=== PATIENT | female | born 1945 | race African-American/Black ===

== ENCOUNTER 2017-11-28 08:05 | Day surgery (SDC) | payer MEDICARE, BC, OTHER ==
[~2017-11-28 08:05] MED LIST: KETOROLAC TROMETHAMINE 0.45% 4 DROP/0.4 ML DROPERETTE OS PRN
[2017-11-28] MEDS: CYCLOPENTOLATE 0.2%/PHENYLEPHRINE 1% OPH SOLN 2 ML OS PRN ×3 (08:55→09:14)
[2017-11-28] MEDS: BESIFLOXACIN HCL 0.6% OPH SUSP 5 ML BOTTLE OS PRN ×3 (08:55→09:54)
[2017-11-28] MEDS: TROPICAMIDE 1% OPH SOLN 3 ML OS PRN ×3 (08:55→09:14)
[2017-11-28] MEDS: TETRACAINE HCL 0.5% OPH SOLN 4 ML OS PRN ×2 (08:55→09:28)
[2017-11-28] MEDS ORDERED: LIDOCAINE 1%/PHENYLEPHRINE 1.5% 1 ML VIAL ONE (09:01)
[2017-11-28] MEDS ORDERED: EPINEPHRINE INJ/PF 1 MG/1 ML AMPULE ONE (09:01)
[2017-11-28] MEDS ORDERED: CHONDR SU A NA/HYALUR INTRAOC KIT (SURGICARE) ONE (09:01)
[2017-11-28] MEDS ORDERED: FENTANYL CITRATE INJ/PF 100 MCG/2 ML AMPUL ONE (09:27)
[2017-11-28] MEDS ORDERED: MIDAZOLAM 2 MG/2 ML INJ ONE (09:27)
[2017-11-28] MEDS ORDERED: TETRACAINE HCL 0.5% OPH SOLN 4 ML OP ONE (09:45)
[2017-11-28] MEDS ORDERED: LIDOCAINE 1%/PHENYLEPHRINE 1.5% 1 ML VIAL IO ONE (09:45)
--- NOTE | 2017-11-28 16:11 | [facility] DISCHARGE SUMMARY E ---
[facility] Discharge Summary NAME: LI BRIDGES AGE: 71Y ADMITTED: 11/28/2017 DISCHARGED: 11/28/2017 FINAL DIAGNOSIS: Cataract, left eye. HISTORY OF PRESENT ILLNESS: This is a 71-year-old female who underwent cataract extraction of the left eye. She underwent surgery because she was having increased difficulty driving at night, secondary to headlights. DISCHARGE INSTRUCTIONS: She should be on a regular diet. No bending at her waist, no heavy lifting. She should use Besivance, Ilevro and Durezol at 3:00 p.m. and 8:00 p.m. Sleep with a rigid shield. I will see her for a 1-day postoperative tomorrow. DICTATING PHYSICIAN: SAURAV BRYAN M.D. [id number] PHY#: [id number] ID: [id number] JOB#: [id number] ACCT: [id number] cc:SAURAV BRYAN M.D. >
--- NOTE | 2017-11-28 16:11 | [facility] OPERATIVE REPORT E ---
[facility] Operative Report NAME: LI BRIDGES AGE: 71Y DATE OF SURGERY: 11/28/2017 ROOM: PREOPERATIVE DIAGNOSIS: CATARACT, LEFT EYE. POSTOPERATIVE DIAGNOSIS: CATARACT, LEFT EYE. OPERATION: Cataract extraction with insertion of an IOL of the left eye. SURGEON: SAURAV BRYAN M.D. ANESTHESIA: Topical. PROCEDURE: After obtaining appropriate consent, the patient's left eye was prepped and draped in sterile fashion as well as the surgeon in a sterile manner and cataract surgery was started. First a paracentesis blade was used to make a side-port incision. Viscoelastic was used to inflate the anterior chamber. Next a 2.4 mm incision was made with a 2.4 mm blade, clear corneal temporally. A continuous capsulorrhexis was made using a cystotome and Utrata forceps. Following this hydrodissection was carried out to make the lens fully loose and mobile and it was rotated 90 degrees. Following this, a ctfdlf-xdq-cjsbysl technique was used to phacoemulsify the lens with a CDE of 5.89. The remaining cortex was removed with irrigation/aspiration. Provisc was instilled into the capsular bag to inflate the bag. A SN60WF, 20.5 diopter lens was placed. The remaining viscoelastic material was removed with irrigation/aspiration. Following this, the incision was found to be watertight. Besivance was instilled into the eye and a protective shield was placed over the eye. The patient returned to the postoperative recovery in stable condition. DICTATING PHYSICIAN: SAURAV BRYAN M.D. [id number] PHY#: [id number] ID: [id number] JOB#: [id number] ACCT: [id number] cc:SAURAV BRYAN M.D. >
== END 2017-11-28 10:28 | disposition home or self-care (01) ==
LOC: SC 08:05
PROVIDERS: ATTEND Internal Medicine
DX: H25.13 Age-related nuclear cataract, bilateral (principal); H57.03 Miosis; I10 Essential (primary) hypertension; E03.9 Hypothyroidism, unspecified; Z79.899 Other long term (current) drug therapy
CPT/HCPCS: 66984; V2632; J2250; J3490 ×2; A9270; J0171; J3010; J2370; 142

== ENCOUNTER 2017-12-17 08:58 | Day surgery (SDC) | payer MEDICARE, BC, OTHER ==
[~2017-12-17 08:58] MED LIST changes: +KETOROLAC TROMETHAMINE 0.45% 4 DROP/0.4 ML DROPERETTE OD PRN; -KETOROLAC TROMETHAMINE 0.45% 4 DROP/0.4 ML DROPERETTE OS PRN
[2017-12-17] MEDS: BESIFLOXACIN HCL 0.6% OPH SUSP 5 ML BOTTLE OD PRN ×4 (09:53→10:54)
[2017-12-17] MEDS: CYCLOPENTOLATE 0.2%/PHENYLEPHRINE 1% OPH SOLN 2 ML OD PRN ×4 (09:53→10:13)
[2017-12-17] MEDS: TROPICAMIDE 1% OPH SOLN 3 ML OD PRN ×4 (09:53→10:13)
[2017-12-17] MEDS: TETRACAINE HCL 0.5% OPH SOLN 4 ML OD PRN ×3 (09:54→10:27)
[2017-12-17] MEDS ORDERED: LIDOCAINE 1%/PHENYLEPHRINE 1.5% 1 ML VIAL ONE (10:04)
[2017-12-17] MEDS ORDERED: EPINEPHRINE INJ/PF 1 MG/1 ML AMPULE ONE (10:04)
[2017-12-17] MEDS ORDERED: CHONDR SU A NA/HYALUR INTRAOC KIT (SURGICARE) ONE (10:05)
[2017-12-17] MEDS ORDERED: FENTANYL CITRATE INJ/PF 100 MCG/2 ML AMPUL ONE (10:10)
[2017-12-17] MEDS ORDERED: MIDAZOLAM 2 MG/2 ML INJ ONE (10:10)
--- NOTE | 2017-12-17 14:13 | [facility] OPERATIVE REPORT E ---
[facility] Operative Report NAME: LI BRIDGES AGE: 71Y DATE OF SURGERY: 12/17/2017 ROOM: PREOPERATIVE DIAGNOSIS: CATARACT, RIGH EYE. POSTOPERATIVE DIAGNOSIS: CATARACT, RIGHT EYE. OPERATION: Cataract extraction with insertion of an IOL of the right eye. SURGEON: SAURAV BRYAN M.D. ANESTHESIA: Topical. PROCEDURE: After obtaining appropriate consent, the patient's right eye was prepped and draped in sterile fashion as well as the surgeon in a sterile manner and cataract surgery was started. First a paracentesis blade was used to make a side-port incision. Viscoelastic was used to inflate the anterior chamber. Next a 2.4 mm incision was made with a 2.4 mm blade, clear corneal temporally. A continuous capsulorrhexis was made using a cystotome and Utrata forceps. Following this hydrodissection was carried out to make the lens fully loose and mobile and it was rotated 90 degrees. Following this, a uplzmd-tpe-zpymykh technique was used to phacoemulsify the lens with a CDE of 5.41. The remaining cortex was removed with irrigation/aspiration. Provisc was instilled into the capsular bag to inflate the bag. A SN60WF, 19.5 diopter lens was placed. The remaining viscoelastic material was removed with irrigation/aspiration. Following this, the incision was found to be watertight. Besivance was instilled into the eye and a protective shield was placed over the eye. The patient returned to the postoperative recovery in stable condition. DICTATING PHYSICIAN: SAURAV BRYAN M.D. [id number] PHY#: [id number] ID: [id number] JOB#: [id number] ACCT: [id number] cc:SAURAV BRYAN M.D. >
--- NOTE | 2017-12-17 14:15 | [facility] DISCHARGE SUMMARY E ---
[facility] Discharge Summary NAME: LI BRIDGES AGE: 71Y ADMITTED: 12/17/2017 DISCHARGED: 12/17/2017 FINAL DIAGNOSIS: CATARACT, RIGHT EYE. HISTORY/CLINIC COURSE: This is a 71-year-old female who underwent cataract extraction of the right eye. She underwent surgery because she was having difficulty with her vision in the right eye, making it hard to drive and watch television. She should be on a regular diet. No bending at the waist, no heavy lifting. Patient should use her Vigamox, Ketorolac, and PredForte at 3 p.m. and 8 p.m., and sleep with a rigid shield. I will see her for 1 day postoperative tomorrow. DICTATING PHYSICIAN: SAURAV BRYAN M.D. [id number] PHY#: [id number] ID: [id number] JOB#: [id number] ACCT: [id number] cc:SAURAV BRYAN M.D. >
== END 2017-12-17 11:37 | disposition home or self-care (01) ==
LOC: SC 08:58
PROVIDERS: ATTEND Internal Medicine
DX: H25.811 Combined forms of age-related cataract, right eye (principal); H57.03 Miosis; Z96.1 Presence of intraocular lens; I10 Essential (primary) hypertension; E07.9 Disorder of thyroid, unspecified; Z79.899 Other long term (current) drug therapy
CPT/HCPCS: 66984; V2632; J2250; J3490 ×2; A9270; J0171; J3010; J2370; 142